=== PATIENT | female | born 1980 | race African-American/Black ===

== ENCOUNTER 2016-11-09 10:10 | Emergency (ER) | payer BC, MEDICAID ==
[~2016-11-09] VITALS: Ht 167.6 cm; Wt 123.0 kg
[~2016-11-09 10:10] MED LIST: BENA40TA3 PO; HYDR12.529 PO; IBUP100T35; VIC
[2016-11-09 10:12] VITALS: BP 156/89
[2016-11-09] MEDS ORDERED: KETOROLAC 60MG/2ML VIAL IM ONE (11:00)
== END 2016-11-09 11:15 | disposition home or self-care (01) ==
LOC: ER 10:12
DX: M25.512 Pain in left shoulder (principal); G89.29 Other chronic pain; G43.909 Migraine, unspecified, not intractable, without status migrainosus; I10 Essential (primary) hypertension; Z79.1 Long term (current) use of non-steroidal anti-inflammatories (NSAID); Z79.899 Other long term (current) drug therapy; Z98.890 Other specified postprocedural states
CPT/HCPCS: 96372; 99283; J1885

== ENCOUNTER 2016-12-23 14:52 | Emergency (ER) | payer MEDICARE, MEDICAID ==
[~2016-12-23] VITALS: Ht 170.2 cm; Wt 123.0 kg
[2016-12-23 18:19] VITALS: BP 171/100
== END 2016-12-24 06:56 | disposition home or self-care (01) ==
LOC: ER 21:03
DX: Z76.0 Encounter for issue of repeat prescription (principal); I10 Essential (primary) hypertension
CPT/HCPCS: 99283

== ENCOUNTER 2017-06-27 08:40 | Emergency (ER) | payer MEDICARE, MEDICAID ==
[~2017-06-27] VITALS: Ht 170.2 cm; Wt 129.0 kg
[2017-06-27] MEDS ORDERED: MORPHINE SULFATE 4 MG/ML CPJ (NOT FOR IM USE) IV STA (10:33)
[2017-06-27] MEDS ORDERED: ONDANSETRON HCL 4MG/2ML VIAL IV STA (10:33)
[2017-06-27 10:57] LABS: BASOPHILS % 0.3 % (0.0-2.0); EOSINOPHILS % 0.1 % (0.0-5.0); HEMATOCRIT. 39.2 % (36.0-48.0); HEMOGLOBIN. 13.2 g/dL (12.0-16.0); LYMPHOCYTES % 23.9 % (20.0-50.0); MEAN CORPUSCULAR HEMOGLOBIN 29.5 pg (28.0-32.0); MEAN CORPUSCULAR VOLUME 87.6 fL (81.0-99.0); MEAN PLATELET VOLUME 9.1 fl (7.4-10.4); MONOCYTES % 6.7 % (2.0-8.0); PLATELET 253 x1000/uL (130-400); RED BLOOD CELL COUNT 4.47 mill/uL (4.2-5.4)
[2017-06-27] MEDS ORDERED: MORPHINE SULFATE 2 MG/ML CPJ (NOT FOR IM USE) IV ONE (11:00)
[2017-06-27 11:01] LABS: CHLORIDE 105 mEq/L (98-107)
[2017-06-27 11:07] LABS: CARBON DIOXIDE 27 mEq/L (21-32)
[2017-06-27 11:14] LABS: INR 1.1; PROTHROMBIN TIME 11.2 sec (9.4-11.6)
[2017-06-27 11:22] LABS: GLUCOSE URINE NEGATIVE (NEGATIVE); KETONES URINE NEGATIVE (NEGATIVE); LEUKOCYTE ESTERASE URINE NEGATIVE (NEGATIVE); NITRITE URINE NEGATIVE (NEGATIVE); OCCULT BLOOD URINE NEGATIVE (NEGATIVE); PH URINE 6.5 (4.5-8.0); PROTEIN URINE NEGATIVE (NEGATIVE); SPECIFIC GRAVITY URINE 1.016 (1.005-1.030); UROBILINOGEN URINE 0.2 E.U./dL (0.2-1.0)
[2017-06-27 11:24] LABS: CLARITY URINE CLEAR (CLEAR); COLOR URINE YELLOW (YELLOW)
[2017-06-27] MEDS ORDERED: HYDROCODONE/ACETAMINOPHEN 5/325MG TABLET PO ONE (13:45)
[2017-06-27 14:44] VITALS: BP 132/71
== END 2017-06-27 14:55 | disposition home or self-care (01) ==
LOC: ER 08:51
DX: N20.0 Calculus of kidney (principal); K76.0 Fatty (change of) liver, not elsewhere classified; I10 Essential (primary) hypertension
CPT/HCPCS: 36415; 74176; 76705; 80053; 81003; 81025; 83690; 85025; 85610; 96374; 96375; 99285; J2270; J2405

== ENCOUNTER 2017-07-25 15:58 | Emergency (ER) | payer MEDICARE, MEDICAID ==
[~2017-07-25] VITALS: Ht 170.2 cm; Wt 127.0 kg
[2017-07-25] MEDS ORDERED: HYDROCODONE/ACETAMINOPHEN 5/325MG TABLET PO ONE (19:00)
[2017-07-25 19:11] LABS: CLARITY URINE CLOUDY (CLEAR); COLOR URINE YELLOW (YELLOW); KETONES URINE NEGATIVE (NEGATIVE); LEUKOCYTE ESTERASE URINE NEGATIVE (NEGATIVE); NITRITE URINE NEGATIVE (NEGATIVE); OCCULT BLOOD URINE NEGATIVE (NEGATIVE); PROTEIN URINE NEGATIVE (NEGATIVE); SPECIFIC GRAVITY URINE 1.023 (1.005-1.030)
[2017-07-25 19:36] LABS: *AMPHETAMINES SCREEN URINE NEGATIVE (NEGATIVE); *BARBITURATES SCREEN URINE NEGATIVE (NEGATIVE); *BENZODIAZEPINES SCREEN URINE NEGATIVE (NEGATIVE); *COCAINE SCREEN URINE NEGATIVE (NEGATIVE); METHADONE URINE SCREEN NEGATIVE (NEGATIVE); PHENCYCLIDINE URINE SCREEN NEGATIVE (NEGATIVE)
[2017-07-25 19:42] VITALS: BP 157/90
[2017-07-25 19:48] LABS: CANNABINOID URINE SCREEN PRESUMTIVE POSITIVE (NEGATIVE); OPIATES URINE SCREEN PRESUMTIVE POSITIVE (NEGATIVE)
== END 2017-07-25 19:55 | disposition home or self-care (01) ==
LOC: ER 17:36
DX: R10.32 Left lower quadrant pain (principal); D25.9 Leiomyoma of uterus, unspecified; Z87.442 Personal history of urinary calculi
CPT/HCPCS: 80305; 81001; 81025; 99284

== ENCOUNTER 2017-08-27 08:52 | Emergency (ER) | payer MEDICARE, MEDICAID ==
[~2017-08-27] VITALS: Ht 170.2 cm; Wt 146.0 kg
[2017-08-27] MEDS ORDERED: MORPHINE SULFATE 4 MG/ML CPJ (NOT FOR IM USE) IV ONE (11:30)
[2017-08-27] MEDS ORDERED: ONDANSETRON HCL 4MG/2ML VIAL IV ONE (11:45)
[2017-08-27 12:16] LABS: CLARITY URINE CLEAR (CLEAR); COLOR URINE YELLOW (YELLOW); KETONES URINE NEGATIVE (NEGATIVE); LEUKOCYTE ESTERASE URINE NEGATIVE (NEGATIVE); NITRITE URINE NEGATIVE (NEGATIVE); OCCULT BLOOD URINE NEGATIVE (NEGATIVE); PH URINE 8.5 (4.5-8.0); PROTEIN URINE NEGATIVE (NEGATIVE); SPECIFIC GRAVITY URINE 1.009 (1.005-1.030); UROBILINOGEN URINE 0.2 E.U./dL (0.2-1.0)
[2017-08-27 12:21] LABS: UCG SCREEN NEGATIVE
[2017-08-27 14:20] VITALS: BP 171/98
== END 2017-08-27 14:24 | disposition home or self-care (01) ==
LOC: ER 09:24
DX: R10.9 Unspecified abdominal pain (principal); R30.0 Dysuria; R11.10 Vomiting, unspecified; D25.9 Leiomyoma of uterus, unspecified; I10 Essential (primary) hypertension
CPT/HCPCS: 74176; 81003; 81025; 96374; 96375; 99285; J2270; J2405

== ENCOUNTER 2017-12-01 04:38 | Emergency (ER) | payer MEDICARE, MEDICAID ==
[~2017-12-01] VITALS: Ht 170.2 cm; Wt 136.0 kg
[2017-12-01 06:30] VITALS: BP 177/99
[2017-12-01] MEDS ORDERED: KETOROLAC 60MG/2ML VIAL IM ONE (07:15)
== END 2017-12-01 07:42 | disposition home or self-care (01) ==
LOC: ER 04:38
DX: M54.9 Dorsalgia, unspecified (principal); G89.29 Other chronic pain; I10 Essential (primary) hypertension
CPT/HCPCS: 81025; 99282

== ENCOUNTER 2018-09-07 09:12 | Emergency (ER) | payer MEDICARE, MEDICAID ==
[~2018-09-07] VITALS: Ht 167.6 cm; Wt 115.0 kg
[~2018-09-07 09:12] MED LIST changes: -BENA40TA3 PO; +BENA40TA9 PO
[2018-09-07] MEDS ORDERED: SODIUM CHLORIDE 0.9% 1,000 ML IV ONE (10:23)
[2018-09-07] MEDS ORDERED: KETOROLAC 30MG/ML VIAL IV STA (10:23)
[2018-09-07] MEDS ORDERED: MORPHINE SULFATE 4 MG/ML CPJ (NOT FOR IM USE) IV STA (10:23)
[2018-09-07] MEDS ORDERED: ONDANSETRON HCL 4MG/2ML INJ IV STA (10:23)
[2018-09-07 10:52] LABS: BASOPHILS % 0.3 % (0.0-2.0); EOSINOPHILS % 0.1 % (0.0-5.0); HEMATOCRIT. 43.1 % (36.0-48.0); HEMOGLOBIN. 14.4 g/dL (12.0-16.0); LYMPHOCYTES % 17.5 % (20.0-50.0); MEAN CORPUSCULAR HEMOGLOBIN 29.8 pg (28.0-32.0); MEAN CORPUSCULAR VOLUME 89.6 fL (81.0-99.0); MEAN PLATELET VOLUME 8.8 fl (7.4-10.4); MONOCYTES % 6.3 % (2.0-8.0); NEUTROPHILS % 75.8 % (40.0-76.0); PLATELET 298 x1000/uL (130-400); RED BLOOD CELL COUNT 4.82 mill/uL (4.2-5.4); RED CELL DISTRIBUTION WIDTH 14.5 % (11.6-14.6)
[2018-09-07 10:54] LABS: CHLORIDE 100 mEq/L (98-107)
[2018-09-07 11:03] LABS: HCG SCREEN INDETERMINATE
[2018-09-07 12:09] LABS: CLARITY URINE CLEAR (CLEAR); COLOR URINE YELLOW (YELLOW); KETONES URINE NEGATIVE (NEGATIVE); LEUKOCYTE ESTERASE URINE NEGATIVE (NEGATIVE); NITRITE URINE NEGATIVE (NEGATIVE); OCCULT BLOOD URINE NEGATIVE (NEGATIVE); PROTEIN URINE NEGATIVE (NEGATIVE); SPECIFIC GRAVITY URINE 1.011 (1.005-1.030); UROBILINOGEN URINE 0.2 E.U./dL (0.2-1.0)
[2018-09-07 12:39] LABS: PROTHROMBIN TIME 10.5 sec (9.1-11.1)
[2018-09-07] MEDS ORDERED: MORPHINE SULFATE 4 MG/ML CPJ (NOT FOR IM USE) IV ONE (12:45)
[2018-09-07 13:11] LABS: *AMPHETAMINES SCREEN URINE NEGATIVE (NEGATIVE); *BARBITURATES SCREEN URINE NEGATIVE (NEGATIVE); *BENZODIAZEPINES SCREEN URINE NEGATIVE (NEGATIVE)
[2018-09-07 13:12] LABS: *COCAINE SCREEN URINE NEGATIVE (NEGATIVE); METHADONE URINE SCREEN NEGATIVE (NEGATIVE); PHENCYCLIDINE URINE SCREEN NEGATIVE (NEGATIVE)
[2018-09-07 13:35] VITALS: BP 145/86
[2018-09-07 13:48] LABS: CANNABINOID URINE SCREEN PRESUMTIVE POSITIVE (NEGATIVE); OPIATES URINE SCREEN PRESUMTIVE POSITIVE (NEGATIVE)
== END 2018-09-07 14:04 | disposition home or self-care (01) ==
LOC: ER 09:21
DX: R10.32 Left lower quadrant pain (principal); I10 Essential (primary) hypertension; Z98.890 Other specified postprocedural states
CPT/HCPCS: 36415; 74176; 76830; 76856; 80053; 80305; 81003; 81025; 83690; 84702; 84703; 85025; 85610; 96374; 96375; 96376; 99284; J1885; J2270; J2405; J7030

== ENCOUNTER 2018-12-03 13:13 | Emergency (ER) | payer MEDICARE, MEDICAID ==
[~2018-12-03] VITALS: Ht 170.2 cm; Wt 118.0 kg
[2018-12-03] MEDS ORDERED: OXYCODONE HCL/ACETAMINOPHEN 5/325MG TABLET PO ONE (14:45)
[2018-12-03 16:42] VITALS: BP 142/94
== END 2018-12-03 16:44 | disposition home or self-care (01) ==
LOC: ER 13:22
DX: M54.9 Dorsalgia, unspecified (principal); M54.30 Sciatica, unspecified side; I10 Essential (primary) hypertension
CPT/HCPCS: 81025; 99283

== ENCOUNTER 2018-12-20 11:02 | Emergency (ER) | payer MEDICARE, MEDICAID ==
[~2018-12-20] VITALS: Ht 170.2 cm; Wt 122.0 kg
[2018-12-20 11:50] LABS: CLARITY URINE CLEAR (CLEAR); COLOR URINE YELLOW (YELLOW); KETONES URINE NEGATIVE (NEGATIVE); LEUKOCYTE ESTERASE URINE NEGATIVE (NEGATIVE); NITRITE URINE NEGATIVE (NEGATIVE); OCCULT BLOOD URINE NEGATIVE (NEGATIVE); PROTEIN URINE NEGATIVE (NEGATIVE); SPECIFIC GRAVITY URINE 1.018 (1.005-1.030); UROBILINOGEN URINE 0.2 E.U./dL (0.2-1.0)
[2018-12-20] MEDS ORDERED: HYDROCODONE/ACETAMINOPHEN 5/325MG TABLET PO ONE ×2 (12:00→12:45)
[2018-12-20] MEDS ORDERED: IBUPROFEN 600MG TABLET PO ONE (12:00)
[2018-12-20 12:49] VITALS: BP 145/89
== END 2018-12-20 12:30 | disposition home or self-care (01) ==
LOC: ER 12:17
DX: K08.89 Other specified disorders of teeth and supporting structures (principal); I10 Essential (primary) hypertension; R51 Headache; Z98.890 Other specified postprocedural states; Z79.899 Other long term (current) drug therapy
CPT/HCPCS: 81025; 99283

== ENCOUNTER 2021-01-10 13:06 | Emergency (ER) | payer MEDICARE, MEDICAID ==
[~2021-01-10] VITALS: Ht 170.2 cm; Wt 127.0 kg
[2021-01-10 13:11] VITALS: BP 177/109
[2021-01-10] MEDS ORDERED: ACETAMINOPHEN 325MG TABLET PO STA (14:29)
[2021-01-10] MEDS ORDERED: ONDANSETRON 4MG ODT PO STA (14:29)
[2021-01-10] MEDS ORDERED: FAMOTIDINE 20MG TABLET PO ONE (14:30)
[2021-01-10 14:42] LABS: CLARITY URINE CLEAR (CLEAR); COLOR URINE YELLOW (YELLOW); KETONES URINE NEGATIVE (NEGATIVE); LEUKOCYTE ESTERASE URINE NEGATIVE (NEGATIVE); NITRITE URINE NEGATIVE (NEGATIVE); OCCULT BLOOD URINE NEGATIVE (NEGATIVE); PROTEIN URINE NEGATIVE (NEGATIVE); SPECIFIC GRAVITY URINE 1.017 (1.005-1.030); UROBILINOGEN URINE 0.2 E.U./dL (0.2-1.0)
[2021-01-10 15:23] LABS: BASOPHILS % 0.3 % (0.0-2.0); HEMATOCRIT. 38.8 % (36.0-48.0); HEMOGLOBIN. 13.2 g/dL (12.0-16.0); LYMPHOCYTES % 22.2 % (20.0-50.0); MEAN CORPUSCULAR HEMOGLOBIN 29.9 pg (28.0-32.0); MEAN CORPUSCULAR VOLUME 87.7 fL (81.0-99.0); MEAN PLATELET VOLUME 9.4 fl (7.4-10.4); MONOCYTES % 5.6 % (2.0-8.0); NEUTROPHILS % 71.9 % (40.0-76.0); PLATELET 327 x1000/uL (130-400); RED BLOOD CELL COUNT 4.42 mill/uL (4.2-5.4); RED CELL DISTRIBUTION WIDTH 14.3 % (11.6-14.6)
[2021-01-10 15:30] LABS: CHLORIDE 104 mEq/L (98-107)
[2021-01-10] MEDS ORDERED: MAGNESIUM/ALUMINUM HYDROXIDE/SIMETHICONE 30ML UDC PO NR (15:45)
[2021-01-10] MEDS ORDERED: MORPHINE SULFATE 4 MG/ML CPJ (NOT FOR IM USE) IV ONE (15:45)
[2021-01-10 16:07] LABS: PROTHROMBIN TIME 10.8 sec (9.6-11.0)
[2021-01-10] MEDS ORDERED: PROT20 MT (17:38)
== END 2021-01-10 18:25 | disposition left against medical advice (07) ==
LOC: ER 13:06
DX: R10.9 Unspecified abdominal pain (principal); I10 Essential (primary) hypertension; Z88.6 Allergy status to analgesic agent; Z98.890 Other specified postprocedural states
CPT/HCPCS: 36415; 76705; 80053; 81003; 83690; 85025; 85610; 96374; 99284; J2270; Q0162